=== PATIENT | female | born 1980 | race Caucasian/White ===

== ENCOUNTER 2018-07-11 09:40 | Outpatient (CLI) | payer BC ==
[2018-07-11] VITALS (22 sets, daily range): BP systolic 117–141; BP diastolic 70–91
== END 2018-07-11 23:59 | disposition home or self-care (01) ==
LOC: CARD DIAG 09:40
PROVIDERS: ATTEND Internal Medicine Cardiovascular Disease
DX: R42 Dizziness and giddiness (principal); Z87.891 Personal history of nicotine dependence
CPT/HCPCS: 93660